=== PATIENT | female | born 1965 | race African-American/Black ===

== ENCOUNTER 2016-08-30 15:48 | Emergency (ER) | payer OTHER ==
[~2016-08-30] VITALS: Ht 162.6 cm; Wt 94.3 kg
[2016-08-30 18:11] LABS: CALCIUM 10.1 mg/dL (8.5-10.1); CARBON DIOXIDE 31.9 mmol/L (21-32); CREATININE SERUM 1.1 mg/dL (0.6-1.0); POTASSIUM SERUM 4.7 mmol/L (3.5-5.1)
[2016-08-30 18:12] LABS: BASOPHIL % 1.1 % (0-2); PLATELET COUNT 310 x10^3mcL (130-400); RED CELL DISTRIBUTION WIDTH 14.3 % (11.5-14.5)
[2016-08-30 18:15] LABS: ALBUMIN 4.3 g/dL (3.4-5.0); BILIRUBIN TOTAL 0.4 mg/dL (0.20-1.00)
[2016-08-30 18:17] LABS: TOTAL PROTEIN, SERUM 8.3 g/dL (6.4-8.2)
[2016-08-30 19:49] VITALS: BP 125/75
== END 2016-08-30 19:49 | disposition home or self-care (01) ==
LOC: ED 15:48
PROVIDERS: Emergency Medicine
DX: J02.9 Acute pharyngitis, unspecified (principal); R10.9 Unspecified abdominal pain; L25.9 Unspecified contact dermatitis, unspecified cause
CPT/HCPCS: 99406; J1885

== ENCOUNTER 2017-03-04 04:19 | Emergency (ER) | payer OTHER ==
[~2017-03-04] VITALS: Ht 162.6 cm; Wt 96.2 kg
[2017-03-04 05:56] VITALS: BP 126/92
== END 2017-03-04 05:56 | disposition home or self-care (01) ==
LOC: ED 04:19
DX: S93.401A Sprain of unspecified ligament of right ankle, initial encounter (principal); J45.909 Unspecified asthma, uncomplicated; Z79.51 Long term (current) use of inhaled steroids; F17.200 Nicotine dependence, unspecified, uncomplicated; Z71.6 Tobacco abuse counseling; X50.1XXA Overexertion from prolonged static or awkward postures, initial encounter; Y93.89 Activity, other specified; Y92.89 Other specified places as the place of occurrence of the external cause; Y99.8 Other external cause status
CPT/HCPCS: 99406; Q0092

== ENCOUNTER 2017-05-08 12:54 | Inpatient (IN) | payer OTHER ==
[~2017-05-08] VITALS: Ht 162.6 cm; Wt 96.2 kg
[2017-05-08 12:58] VITALS: Ht 162.6 cm; Wt 96.2 kg
[2017-05-08 14:22] LABS: BASOPHIL % 0.4 % (0-2); PLATELET COUNT 377 x10^3mcL (130-400)
[2017-05-08 14:36] LABS: RED CELL DISTRIBUTION WIDTH 14.6 % (11.5-14.5)
[2017-05-08 15:11] LABS: CALCIUM 8.9 mg/dL (8.5-10.1); CHLORIDE SERUM 106 mmol/L (98-107); CREATININE SERUM 0.9 mg/dL (0.6-1.0); GFR1 > 60 mL/min; GLUCOSE SERUM 95 mg/dL (74-106); POTASSIUM SERUM 3.8 mmol/L (3.5-5.1); SODIUM SERUM 143 mmol/L (136-145)
[2017-05-08 15:15] LABS: ALKALINE PHOSPHATASE 71 U/L (46-116); ALT/SGPT 34 U/L (14-59); AST/SGOT 21 U/L (15-37); BILIRUBIN TOTAL 0.5 mg/dL (0.20-1.00); TOTAL PROTEIN, SERUM 7.2 g/dL (6.4-8.2)
[2017-05-08 15:18] LABS: ALBUMIN 3.2 g/dL (3.4-5.0)
[2017-05-08 15:49] LABS: MAGNESIUM 2.4 mg/dL (1.8-2.4); PHOSPHOROUS 2.1 mg/dL (2.5-4.9)
[2017-05-08 15:51] LABS: T3 TOTAL 1.08 ng/mL
[2017-05-08 16:08] VITALS: BP 131/79
[2017-05-08 16:31] LABS: CHOLESTEROL/HDL RATIO 5.2
[2017-05-08 17:00] LABS: FREE T4 1.25 ng/dL (0.76-1.46); FREE THYROXINE INDEX 3.2 ug/dL (1.4-4.5)
[2017-05-08] MEDS ORDERED: PREDNISONE2.5 MG PO (17:43)
[2017-05-08] MEDS ORDERED: VENTOLIN H0.09 MG/A1 INH (17:43)
[2017-05-08 18:04] VITALS: BP 155/75
[2017-05-08 19:03] LABS: microscopic required? NO
[2017-05-08 19:09] LABS: urine erythrocyte NEGATIVE (NEGATIVE)
[2017-05-08 19:36] LABS: AMPHETAMINE QUAL UR NONE DETECTED (NEG <=1000)
[2017-05-08 21:46] VITALS: BP 136/70
[2017-05-09 06:42] VITALS: BP 126/69
[2017-05-09 07:07] LABS: BASOPHIL % 0.1 % (0-2); PLATELET COUNT 356 x10^3mcL (130-400)
[2017-05-09 07:13] LABS: RED CELL DISTRIBUTION WIDTH 14.6 % (11.5-14.5)
[2017-05-09 07:55] LABS: CALCIUM 8.9 mg/dL (8.5-10.1); CARBON DIOXIDE 25.3 mmol/L (21-32); CHLORIDE SERUM 107 mmol/L (98-107); CREATININE SERUM 0.9 mg/dL (0.6-1.0); GFR1 > 60 mL/min; GLUCOSE SERUM 138 mg/dL (74-106); MAGNESIUM 2.6 mg/dL (1.8-2.4); PHOSPHOROUS 2.6 mg/dL (2.5-4.9); POTASSIUM SERUM 4.4 mmol/L (3.5-5.1); SODIUM SERUM 142 mmol/L (136-145)
[2017-05-09 10:26] VITALS: BP 128/65
[2017-05-09 13:52] VITALS: BP 129/67
[2017-05-09 18:09] VITALS: BP 135/64
[2017-05-09 21:12] VITALS: BP 128/67
[2017-05-10 05:36] VITALS: BP 131/75
[2017-05-10 06:40] LABS: PLATELET COUNT 389 x10^3mcL (130-400)
[2017-05-10 06:55] LABS: CALCIUM 8.7 mg/dL (8.5-10.1); CARBON DIOXIDE 25.1 mmol/L (21-32); CHLORIDE SERUM 109 mmol/L (98-107); GFR1 > 60 mL/min; GLUCOSE SERUM 103 mg/dL (74-106); POTASSIUM SERUM 4.1 mmol/L (3.5-5.1); SODIUM SERUM 142 mmol/L (136-145)
[2017-05-10 10:43] VITALS: BP 129/103
[2017-05-10 10:55] LABS: BAND NEUTROPHIL 2 % (0-10); BASOPHIL 0 % (0-2); MONOCYTE 5 % (0-7); SEGMENTED NEUTROPHILS 76 % (37-75)
[2017-05-10 10:56] LABS: PLATELET MORPHOLOGY PLATELETS NORMAL; rbc morphology (normal/abnorm) ABNORMAL (NORMAL)
[2017-05-10 13:00] VITALS: BP 150/78
[2017-05-10 17:20] VITALS: BP 141/83
[2017-05-10 19:40] VITALS: BP 143/83
[2017-05-11 07:41] LABS: CALCIUM 8.8 mg/dL (8.5-10.1); CHLORIDE SERUM 108 mmol/L (98-107); GFR1 > 60 mL/min; GLUCOSE SERUM 88 mg/dL (74-106); POTASSIUM SERUM 3.5 mmol/L (3.5-5.1); SODIUM SERUM 141 mmol/L (136-145)
[2017-05-11 07:49] LABS: BASOPHIL % 0.3 % (0-2); PLATELET COUNT 393 x10^3mcL (130-400)
[2017-05-11] MEDS ORDERED: VENTOLIN H0.09 MG/A1 INH (12:11)
[2017-05-11] MEDS ORDERED: PREDNISONE20 MG PO (12:11)
[2017-05-11] MEDS ORDERED: SINGULAIR10 MG PO (12:11)
[2017-05-11] MEDS ORDERED: LEVAQUIN750 MG PO (12:11)
[2017-05-11] MEDS ORDERED: IPRATROPIUM BROM3 M2 IH (14:42)
[2017-05-11 14:49] VITALS: BP 143/83
== END 2017-05-11 15:40 | disposition home or self-care (01) | DRG 133 ==
LOC: ED 12:54 → DU 14:49
PROVIDERS: Emergency Medicine; Family Medicine; Student in an Organized Health Care Education/Training Program
DX: J96.01 Acute respiratory failure with hypoxia (principal); E44.0 Moderate protein-calorie malnutrition; E11.65 Type 2 diabetes mellitus with hyperglycemia; J45.901 Unspecified asthma with (acute) exacerbation; E83.39 Other disorders of phosphorus metabolism; K59.00 Constipation, unspecified; F84.0 Autistic disorder; F12.10 Cannabis abuse, uncomplicated; E78.5 Hyperlipidemia, unspecified; Z68.36 Body mass index [BMI] 36.0-36.9, adult; Z87.891 Personal history of nicotine dependence; W18.39XA Other fall on same level, initial encounter; Y93.89 Activity, other specified; Y92.89 Other specified places as the place of occurrence of the external cause; Y99.8 Other external cause status; S93.401A Sprain of unspecified ligament of right ankle, initial encounter
CPT/HCPCS: 82962; 83880; 84439; 90732; 94150; J0696; J1815; J1956; J2920; J2930; J3475; J7030; J7512; J7613; J7620; J7626; J7644; Q0092

== ENCOUNTER 2017-09-30 13:31 | Emergency (ER) | payer MEDICAID ==
[~2017-09-30] VITALS: Ht 162.6 cm; Wt 92.1 kg
[~2017-09-30 13:31] MED LIST: IPRATROPIUM BROM3 M2 IH; LEVAQUIN750 MG PO; PREDNISONE2.5 MG PO; PREDNISONE20 MG PO; SINGULAIR10 MG PO; VENTOLIN H0.09 MG/A1 INH
[2017-09-30 13:43] VITALS: Ht 162.6 cm; Wt 92.1 kg
[2017-09-30 15:09] VITALS: BP 135/89
== END 2017-09-30 15:09 | disposition home or self-care (01) ==
LOC: ED 13:31
DX: B34.9 Viral infection, unspecified (principal); J45.909 Unspecified asthma, uncomplicated; W54.0XXA Bitten by dog, initial encounter; Y93.89 Activity, other specified; Y92.89 Other specified places as the place of occurrence of the external cause; Y99.8 Other external cause status